=== PATIENT | male | born 1975 | race Caucasian/White ===

== ENCOUNTER 2018-04-27 06:38 | Inpatient (IN) | payer MEDICARE, OTHER ==
[~2018-04-27 06:38] MED LIST: ROPIVACAINE HCL/PF 100 MG, EPINEPHrine 0.2 MG, KETOROLAC TROMETHAMINE 30 MG in NORMAL S... IJ PRN; TRANEXAMIC ACID 1,000 MG in NORMAL SALINE 100 ML IV PRN; ceFAZolin SODIUM 1 GM VIAL IV PRN
--- NOTE | 2018-04-27 07:27 | ANES ---
Anesthesia Pre Procedure Eval Vitals/Labs: Last Vital Signs Temp 36.9 C 04/27/18 06:50 Pulse 95 04/27/18 06:50 Resp 18 04/27/18 06:50 BP 132/78 04/27/18 06:50 Pulse Ox 95 04/27/18 06:50 HOME MEDICATIONS buspirone 15 mg tablet 15 mg PO TID 03/04/18 [Last Taken Unknown] cholecalciferol (vitamin D3) 2,000 unit tablet 2,000 unit PO DAILY 03/04/18 [Last Taken Unknown] famciclovir 500 mg tablet 500 mg PO BID 03/04/18 [Last Taken Unknown] ibuprofen 800 mg tablet 800 mg PO TID 03/04/18 [Last Taken Unknown] venlafaxine ER 150 mg capsule,extended release 24 hr 150 mg PO DAILY 03/04/18 [Last Taken Unknown] pregabalin 200 mg capsule 200 mg PO TID #270 cap 03/06/18 [Last Taken Unknown] triamcinolone acetonide 0.1 % topical cream 1 applic TP BID #454 g 03/06/18 [Last Taken Unknown] tramadol 50 mg tablet 50 mg PO QID #28 tab 03/13/18 [Last Taken Unknown] CPAP See Rx Instructions .ROUTE .COMPLEX #1 04/22/18 [Last Taken Unknown] Allergies/Adverse Reactions: Allergies Allergy/AdvReac Type Severity Reaction Status Date / Time morphine Allergy Severe decrease Verified 04/27/18 07:01 in respirations,stopped breathing - Planned Procedure Planned Procedure: Right Arthroplasty Total Knee Medication List Reviewed:: Yes Allergies Verified: Yes Medical History (Last Reviewed 04/27/18 @ 07:19 by Richard Mandel CRNA) Degenerative joint disease of knee (Chronic) Current every day smoker (Chronic) Neurogenic bladder (Chronic) Right knee DJD (Chronic) Left knee DJD (Chronic) Panic attack (Acute) Onset Date: Unknown SHADY (obstructive sleep apnea) (Chronic) Onset Date: Unknown Opioid dependence (Chronic) Onset Date: Unknown Depression (Chronic) Onset Date: Unknown Anxiety (Chronic) Onset Date: Unknown ARDS (adult respiratory distress syndrome) Onset Date: Unknown Bilateral knee pain Onset Date: Unknown Constipation Onset Date: Unknown Diaphoresis Onset Date: Unknown Herpes Onset Date: Unknown MRSA (methicillin resistant staph aureus) culture positive Onset Date: Unknown Post herpetic neuralgia Onset Date: Unknown Surgical History (Last Reviewed 04/27/18 @ 07:19 by Richard Mandel CRNA) Failed spinal cord stimulator Onset Date: Unknown H/O arthroscopic knee surgery Onset Date: ~2001 Family History (Last Reviewed 04/27/18 @ 07:19 by Richard Mandel CRNA) Mother Cancer Grandfather Cancer - Family Anesthesia History Family History:: no untoward family reactions to anesthesia, no familial bleeding tendencies, no family history of clotting disorders, no family history of premature - Respiratory Smoking Status: Current every day smoker Discussed smoking cessation including day of surgery: Yes Sleep Apnea currently treated: No Sleep Apnea by current assessment: No Discussed Risks/Treatment of SHADY: No - Cardiovascular Tolerates Activity: Fair Heart Sounds: S1 & S2, Regular - Anesthesia Assessment and Plan ASA Class: PS, III Anesthesia Type Plan: General ET - Patient chooses GA, Block - Right adductor canal block for postop analgesia
[2018-04-27] MEDS: RINGER'S SOLUTION,LACTATED 1,000 ML IV PRN ×3 (07:30→11:04)
[2018-04-27] MEDS ORDERED: HYDROmorphone HCL 1 MG/ML DISP.SYRIN IV PRN (10:26)
[2018-04-27] MEDS ORDERED: ZOLPIDEM TARTRATE 5 MG TABLET PO PRN (10:26)
[2018-04-27] MEDS ORDERED: ACETAMINOPHEN 500 MG TABLET PO PRN (10:26)
[2018-04-27] MEDS ORDERED: MAG HYDROX/ALUMINUM HYD/SIMETH 30 ML UDC PO PRN (10:26)
[2018-04-27] MEDS ORDERED: ONDANSETRON HCL/PF 2 MG/ML VIAL IV PRN (10:26)
[2018-04-27] MEDS ORDERED: diphenhydrAMINE HCL 50 MG/ML VIAL IV PRN (10:26)
[2018-04-27] MEDS ORDERED: DEXTROSE 5%-LACTATED RINGERS 1,000 ML IV PRN (10:26)
[2018-04-27] MEDS ORDERED: MAGNESIUM HYDROXIDE 30 ML UDC PO PRN (10:26)
--- NOTE | 2018-04-27 10:26 | OR ---
Operative Report - Dictated Report Narrative: Date: 04/27/2018 Preoperative diagnosis: Right Knee degenerative joint disease. Postoperative diagnosis: Right Knee degenerative joint disease. Procedure: Right Total knee arthroplasty. Surgeon: Obey Marte M.D. Audiology Assistant: Evens Landrum PA-C Anesthesia: Spinal with regional block and local periarticular joint injection. Complications: None Specimens: Bone for disposal. Estimated blood loss: Minimal. Tourniquet time: 120 Minutes at 350 millimeters of mercury. Retained implants: Depuy Attune size 6 right lugged cemented posterior stabilized femoral component. Size 7 fixed-bearing cemented tibial platform. 6 by 5 millimeter posterior stabilized cross-linked tibial insert. 41 millimeter medialized patella button. Indications: Mr. Germain is a 43-year-old gentleman who has had long-standing right knee pain and arthrosis. This patient was followed in my clinic for period of time with significant complaints of right knee pain consistent with arthritic changes. He had failed conservative measures including, but not limited to, activity modification, passage of time, medications, and other conservative measures. Patient wished to proceed with surgical treatment. The risks, benefits, and alternatives were discussed in clinic. The risks of , blood clots, bleeding, infection, nerve/tendon blood vessel/ injury, malposition of components, intraoperative fracture, postoperative limited range of motion, persistent pain, failure of components, and need for additional procedures. Patient wished to proceed consent was obtained after answering all questions. Procedure: After marking the correct extremity on the floor, the patient was jade en to the operating room. A timeout was performed. IV antibiotics consisting of Ancef were administered prior to the procedure. A regional followed by spinal anesthetic was induced by anesthesia, per my request, on the operative table with all bony prominences well-padded. Cassidy catheter was placed, and a bump was placed under the operative side buttock. SCDs and TONYN hose were utilized on the nonoperative leg. A well-padded tourniquet was applied to the operative thigh. The operative leg was then pre-scrubbed with alcohol prepped, and draped in a standard sterile fashion. After exsanguinating the extremity with an Esmarch bandage, the tourniquet was inflated. After marking out the anterior knee for standard incision centered over the patella, the skin was incised and dissected down to the joint retinaculum. The joint retinaculum was marked out as well as the horizontal axis of the patella, and a standard medial parapatellar arthrotomy was then made. The most proximal aspect of the quadriceps tendon and the patella tendon insertion were protected from release. A partial synovectomy was performed as well as a resection of the infrapatellar fat pad. The distal femoral fat pad proximal to the trochlea was also resected using cautery. The soft tissues were elevated off the medial aspect of the proximal tibia using a Frias elevator ensuring that we did not transect the medial collateral ligament. Upon initial evaluation range of motion was approximately 10 degrees to 130 degrees of flexion. There were signs of advanced arthrosis in the lateral and patellofemoral joint spaces. There were large marginal osteophytes which were removed with a rongeur. The knee was hyperflexed and the patella was tucked laterally. Protecting the surrounding soft tissues with Homans, an entry drill was placed down the femoral canal using Whitesides line for guidance into the entry point. The intramedullary femoral alignment hetal was utilized in order to cut the distal femur in 5 degrees of valgus resecting 11 millimeters of bone. Next the distal femur was sized to a size 6. A posterior referencing guide was utilized to place the distal femoral cutting block in 3 degrees of external rotation. This was pinned into place. The rotation was confirmed both visually and based on anatomic landmarks. The 4 in 1 cutting jig of the appropriate size was utilized in order to make all bony cuts. The angle wing was used to ensure no notching. Retractors were utilized in order to protect surrounding soft tissues. This cut did not result in any excessive notching. We then cut the box centered over the distal femur. This allowed for resection of the anterior and posterior cruciate ligaments. I then turned my attention to the preparation of the tibia. Using an extra medullary tibial alignment hetal, 4 millimeters of bone was resected off the medial articular surface. This was made perpendicular to the mechanical axis of the joint with the alignment hetal centered over the ankle mortise. The alignment hetal was checked and was noted to be parallel to the mechanical axis, centered over the medial one third of the tibial tubercle, paralleling the anterior surface of the tibia. We then turned our attention to the remaining meniscus and soft tissues. These were removed while protecting the surrounding ligaments and soft tissues. The marginal osteophytes off the anterior, posterior, medial, lateral aspects of the femur and tibia were removed. The tibia was sized out to a size 7. Next the tibia was drilled and punched in an externally rotated position. Next the trial femur and a series of tibial inserts were utilized in order to allow for full extension and maximal flexion. It was found that a 5 millimeter insert gave the best range of motion and stability at multiple flexion points as well as at full extension there was less than 2 mm of gapping both medially and laterally. There is minimal anterior translation with the knee at 90 degrees of flexion and no signs of being able to dislocate the knee. The patella was then prepared. The initial thickness was 26 millimeters. This was reamed down to 15 millimeters parallel to the anterior surface of the patella. It was sized out to a size 41 medialized patella button. This was then drilled and trialed. Without any medial restraint the patella tracked appropriately and did not sublux or dislocate. At this point, it was felt these were the appropriate sized implants, and all trials were removed. The standard periarticular joint injection consisting of ropivacaine, Toradol, and epinephrine were injected into the periarticular joint tissues. The bony surfaces were thoroughly irrigated with a pulsatile-suction saline irrigation device. A bone plug from the prior resected anterior chamfer cut was placed into the drill hole at the distal femur. The bony surfaces were then dried in preparation for placement of the implants. The cement was vacuum mixed per the estimator's instructions. The cement was placed on the dry bony surfaces and posterior aspect of the implants. The implants were impacted into place, removing all extruded cement. At this point anesthesia administered tranexamic acid per protocol intravenously. The knee was placed in extension with axial loading with the trial insert while the cement cured. Once the cement cured, all remaining extruded cement was removed. The knee was placed through a range of motion with the trial insert to ensure appropriate range of motion and stability. Final range of motion was approximately 0 to 130 degrees. The knee was again thoroughly irrigated with pulsatile saline lavage. The final polyethylene insert was then impacted into place ensuring no retained soft tissues. The remaining periarticular joint injection was injected. A medium Hemovac drain was placed exiting superior laterally. The knee was then placed over a triangle and the arthrotomy was closed with interrupted #1 Vicryl after thoroughly irrigating the joint. The deep and subcutaneous tissues were closed with interrupted 0 and 3-0 Vicryl respectively. Skin was closed with a running subcutaneous 3-0 Monocryl and rodney. Xeroform, 4 x 4's, Sof-Rol, and a full leg Sebas wrap were applied. All sponge, needle, blade, and instrument counts were correct prior to closing the wounds. Postoperative condition: The patient was awoken and transferred to the postanesthesia care unit in stable condition. Plan is to be admitted to the inpatient medical/surgical floor postoperatively for 24 hours of IV antibiotics, physical therapy, occupational therapy, and medical comanagement. Patient will be weightbearing as tolerated with range of motion as tolerated. DVT prophylaxis will be with SCDs, TONNY hose, and pharmacological anticoagulation. Anticipated hospital stay is approximately 1-3 days.
[2018-04-27] MEDS ORDERED: CPAP SCH (10:30)
--- NOTE | 2018-04-27 10:44 | ANES ---
Post Anesthesia Discharge - Transfer of Care Transfer of Care handoff given to nurse: Yes - Discharge from PACU Discharge from PACU when meets criteria: Yes - Discharge to ASU Discharge to ASU-no complications/pt stable: Yes
[2018-04-27] MEDS ORDERED: HYDROmorphone HCL 2 MG/ML VIAL IV PRN (10:46)
[2018-04-27] MEDS ORDERED: PROCHLORPERAZINE EDISYLATE 5 MG/ML VIAL IV PRN (10:46)
[2018-04-27] MEDS ORDERED: NALOXONE HCL 0.4 MG/ML VIAL IV PRN (10:46)
--- NOTE | 2018-04-27 12:46 | ANES ---
Post Anesthesia Assessment - Vital Signs Vitals: Last Vital Signs Temp 36.4 C 04/27/18 12:24 Pulse 82 04/27/18 12:24 Resp 18 04/27/18 12:24 BP 95/32 04/27/18 12:24 Pulse Ox 96 04/27/18 12:24 Airway Patency: Normal - Mental Status Level Of Consciousness: Awake - Pain Level Pain Score: 5 - N/V Assessment Nausea/Vomiting Presence: None Dehydration:: No
[2018-04-27] MEDS: KETOROLAC TROMETHAMINE 15 MG/ML VIAL IV SCH ×3 (13:26→23:28)
[2018-04-27] MEDS: busPIRone HCL 5 MG TABLET PO SCH ×2 (13:29→17:03)
[2018-04-27] MEDS: ceFAZolin SODIUM 1 GM in DEXTROSE 5 % IN WATER 100 ML IV SCH ×4 (13:29→19:35)
[2018-04-27] MEDS: PREGABALIN 50 MG CAPSULE PO SCH ×2 (13:52→20:21)
[2018-04-27] MEDS: TRIAMCINOLONE ACETONIDE 15 APPL TUBE TP SCH (20:18)
[2018-04-27] MEDS: FAMCICLOVIR 500 MG PO SCH (20:18)
[2018-04-27] MEDS ORDERED: SENNOSIDES/DOCUSATE SODIUM 1 TAB TABLET PO SCH (21:00)
[2018-04-28] MEDS: ceFAZolin SODIUM 1 GM in DEXTROSE 5 % IN WATER 100 ML IV SCH ×2 (01:25)
[2018-04-28] MEDS: KETOROLAC TROMETHAMINE 15 MG/ML VIAL IV SCH ×2 (05:26→10:32)
[2018-04-28 05:34] LABS: Hematocrit 38.8 % (42.0-52.0); Hemoglobin 13.2 gm/dL (13.5-18.0); Mean Cell Volume 89.4 fl (78-100); Mean Corpuscular Hemoglobin 30.4 pg (27-31); Mean Platelet Volume 9.2 fl (8-11.3); Platelet Count 228 K/mm3 (150-450); Red Blood Count 4.34 M/mm3 (4.7-6.0); Red Cell Distribution Width 13.1 % (11.5-14.0); White Blood Count 8.9 K/mm3 (4.0-10.5)
[2018-04-28 05:38] LABS: Anion Gap 4.6 mmol/L (6.8-13.8); BUN/Creatinine Ratio 17.6 (9.0-21.6); Calcium * 8.3 mg/dL (7.9-10.9); Carbon Dioxide 29.6 mmol/L (24-32.6); Estimated Creat Clear 90.8; Potassium 4.2 mmol/L (3.4-4.6)
[2018-04-28] MEDS: oxyCODONE HCL/ACETAMINOPHEN 1 TAB TABLET PO PRN ×2 (07:05→12:14)
[2018-04-28] MEDS: PREGABALIN 50 MG CAPSULE PO SCH ×2 (07:05→13:26)
--- NOTE | 2018-04-28 07:46 | ANES ---
Anesthesia Procedure Note Procedure Note: ANESTHESIA PROCEDURE NOTE Date of Procedure: 04/27/2018. Time of procedure: 0740. Performed by: Richard Mandel CRNA [employer] Interpreter: None. Preprocedure diagnosis: Right knee degenerative joint disease. Post procedure diagnosis: Same. Procedure: Right ultrasound guided adductor canal block for block postoperative analgesia. Indications: The patient is a 43-year-old male, requesting right ultrasound- guided abductor canal block for postoperative analgesia related to right total knee arthroplasty. Findings: See below. Details of the procedure: The tissue over the intended target site was cleansed with ChloraPrepand draped in a sterile fashion. 2 ml Lidocaine 1 % was infiltrated to the skin and subcutaneous tissue at the intended target site. Under sterile technique and ultrasound guidance a 18-gauge Tuohy needle was inserted through the right sartorius muscle to the saphenous nerve just anterior and medial to the superficial femoral artery and vein. 15 mL's of 0.5% bupivacaine was injected after negative aspiration for blood. Needle tip and spread of local anesthetic surrounding the saphenous nerve was observed throughout the injection with real time ultrasound visualization. The Tuohy needle was then removed intact. No complications were noted. The images were retained in the Hospital medical database. EBL: Minimal. Fluids: N/A. Specimen: N/A. Post procedure condition: The patient tolerated the procedure well. No complications were noted. Thank you for this consultation. Richard Mandel CRNA
[2018-04-28] MEDS: TRIAMCINOLONE ACETONIDE 15 APPL TUBE TP SCH (08:48)
[2018-04-28] MEDS: busPIRone HCL 5 MG TABLET PO SCH ×2 (08:48→13:25)
[2018-04-28] MEDS: FAMCICLOVIR 500 MG PO SCH (08:49)
[2018-04-28] MEDS ORDERED: CHOLECALCIFEROL 1,000 UNIT CAPSULE PO SCH (09:00)
[2018-04-28] MEDS ORDERED: VENLAFAXINE HCL 150 MG CAP.SR.24H PO SCH (09:00)
[2018-04-28] MEDS ORDERED: ENOXAPARIN SODIUM 40 MG/0.4 ML SYRG SC SCH (09:26)
--- NOTE | 2018-04-28 12:24 | DS ---
(1) S/P total knee arthroplasty Problem: Acute (2) Acute blood loss anemia Problem: Acute (3) Right knee DJD Problem: Chronic Qualifiers: (4) Opioid dependence Problem: Chronic Description of Stay: Mr. Germain was admitted to the floor after undergoing right total knee arthroplasty. Tolerated this well. Was admitted to the floor postoperatively for 24 hours of IV antibiotics, pain control, medical comanagement, and occupational and physical therapy. OT and PT were consulted to assist with activities of daily living and ambulation. Was made weightbearing as tolerated with range of motion as tolerated. Pain was initially controlled with IV regimen. This was transitioned to oral once tolerating a by mouth intake. Was resumed on home diet and medications. Had a Cassidy catheter inserted and the operating room which was discontinued on postoperative day 1. A drain was placed intraoperatively into the knee which was discontinued on postoperative day 1. Lovenox SCD and TONNY hose were utilized for DVT prophylaxis. Vital signs remained stable to the hospital course. Serial labs were obtained which showed a final hemoglobin of 13.2 grams. BMP was reviewed and was stable. Physical examination throughout the hospital course showed an extremity that had sensation that was intact to light touch, palpable pulses, a benign wound, motor intact to the toes, ankle, and knee. Knee range of motion was approximately 5 degrees to 70 degrees. Once an oral pain regimen was tolerated and physical therapy goals were met, it was felt that they were stable for discharge to home. Instructions: Continue with weightbearing as tolerated and range of motion as tolerated. Keep surgical incision clean and dry. Keep incision coveed with dry gauze and tape. Change every 2-3 days as needed. Continue with physical therapy. Resume home diet. Report any fever over 101.5 Fahrenheit, uncontrolled pain, increased drainage, foul odor of drainage, new or increased calf pain or shortness of breath, or any other significant complaints. A 325mg dialy aspirin will be started after finishing anticoagulation if not allergic. Continue with TONNY hose on the operative extremity until instructed otherwise. No driving until instructed otherwise. Follow up in approximately 10-14 days. Procedures Performed: see notes below List Procedures: Right total knee arthroplasty Results and Findings: Lab Pending Results 04/28/18 05:24: WBC 8.9, RBC 4.34 L, Hgb 13.2 L, Hct 38.8 L, MCV 89.4, MCH 30.4, MCHC 34.0, RDW 13.1, Plt Count 228, MPV 9.2 04/28/18 05:24: Sodium 132, Plasma Sodium 132, Potassium 4.2, Chloride 102, Carbon Dioxide 29.6, Anion Gap 4.6 L, BUN 21, Creatinine 1.19, Est GFR (Non-Af Amer) 72, BUN/Creatinine Ratio 17.6, Random Glucose 102, Calcium 8.3 Discharge Location: Home Disposition: Home self-care Condition: Good Referrals: Simone Salazar DO [Primary Care Provider] - Additional Patient Instructions (free text): Physical Therapy at [facility] outpatient Rehab on Follow up with Dr Marte Orthopediclelo on Prescriptions (Any new or edited meds): Enoxaparin Sodium [Lovenox] 40 mg SC Q24H #7 disp.syrin oxyCODONE HCL [Oxycontin] 10 mg PO BID #20 tab.sr.12h oxyCODONE HCL/ACETAMINOPHEN [Percocet 5 MG/325 MG] 2 tab PO Q4H PRN #90 tablet PRN Reason: Moderate Pain (Pain Scale 4-6) Sennosides/Docusate Sodium [Senokot-S] 2 tab PO HS #30 tablet Complete Home Medications List: Complete Home Medication List: buspirone 15 mg tablet 15 mg PO TID 03/04/18 cholecalciferol (vitamin D3) 2,000 unit tablet 2,000 unit PO DAILY 03/04/18 famciclovir 500 mg tablet 500 mg PO BID 03/04/18 venlafaxine ER 150 mg capsule,extended release 24 hr 150 mg PO DAILY 03/04/18 pregabalin 200 mg capsule 200 mg PO TID #270 cap 03/06/18 triamcinolone acetonide 0.1 % topical cream 1 applic TP BID #454 g 03/06/18 CPAP See Rx Instructions .ROUTE .COMPLEX #1 04/22/18 Enoxaparin Sodium [Lovenox] 40 mg SC Q24H #7 disp.syrin 04/28/18 Sennosides/Docusate Sodium [Senokot-S] 2 tab PO HS #30 tablet 04/28/18 oxyCODONE HCL [Oxycontin] 10 mg PO BID #20 tab.sr.12h 04/28/18 oxyCODONE HCL/ACETAMINOPHEN [Percocet 5 MG/325 MG] 2 tab PO Q4H PRN #90 tablet 04/28/18 Amb Orders for Discharge: PT Evaluation and Treatment* Facility: [facility], Location: Rehabilitation Services
[2018-04-28 13:49] VITALS: BP 130/89
== END 2018-04-28 14:05 | disposition home or self-care (01) | DRG 470 ==
LOC: MS 06:38 → EDSTATUS 08:00
PROVIDERS: ADMIT Orthopaedic Surgery; ATTEND Orthopaedic Surgery
CPT/HCPCS: 36415; 73560; 80048; 85027; 90686; 94660; 97110; 97116; 97161; 97165

== ENCOUNTER 2020-04-10 15:00 | Inpatient (IN) ==
[2020-04-19] MEDS ORDERED: ceFAZolin SODIUM 1 GM VIAL IV PRN (06:00)
[2020-04-19] MEDS ORDERED: TRANEXAMIC ACID 1,000 MG in NORMAL SALINE 100 ML IV PRN (06:00)
[2020-04-19] MEDS ORDERED: ROPIVACAINE HCL/PF 100 MG, EPINEPHrine 0.2 MG, KETOROLAC TROMETHAMINE 30 MG in NORMAL S... IJ PRN (06:00)
[2020-04-19] MEDS ORDERED: PROPOFOL VIAL IV ONE (06:16)
[2020-04-19] MEDS ORDERED: BUPIVACAINE HCL/EPINEPHRINE 50 ML VIAL ONE (06:16)
[2020-04-19] MEDS ORDERED: MIDAZOLAM HCL/PF 5 MG/ML VIAL ONE (06:16)
[2020-04-19] MEDS: RINGER'S SOLUTION,LACTATED 1,000 ML IV PRN ×2 (06:30→08:40)
[2020-04-19] MEDS ORDERED: fentaNYL CITRATE/PF 50 MCG/ML AMPUL ONE (06:46)
[2020-04-19] MEDS ORDERED: NEOSTIGMINE METHYLSULFATE 1 MG/ML VIAL ONE (06:46)
[2020-04-19] MEDS ORDERED: GLYCOPYRROLATE 0.2 MG/ML VIAL ONE (06:46)
[2020-04-19] MEDS ORDERED: LIDOCAINE HCL 50 ML VIAL ONE (06:46)
[2020-04-19] MEDS ORDERED: ROCURONIUM BROMIDE 10 MG/ML VIAL ONE (06:47)
[2020-04-19] MEDS ORDERED: SUCCINYLCHOLINE CHLORIDE 20 MG/ML VIAL ONE (06:47)
--- NOTE | 2020-04-19 06:55 | ANES ---
Anesthesia Pre Procedure Eval Vitals/Labs: Last Vital Signs Temp 36 C 04/19/20 06:10 Pulse 86 04/19/20 06:10 Resp 18 04/19/20 06:10 BP 125/80 04/19/20 06:10 Pulse Ox 96 04/19/20 06:10 HOME MEDICATIONS CPAP See Rx Instructions .ROUTE .COMPLEX #1 04/22/18 [Last Taken Unknown] cholecalciferol (vitamin D3) 1,250 mcg (50,000 unit) tablet 25,000 unit PO DAILY #14 tab 05/06/19 [Last Taken Unknown] omeprazole 40 mg capsule,delayed release 40 mg PO DAILY #90 cap 05/06/19 [Last Taken Unknown] cetirizine 10 mg tablet 10 mg PO DAILY PRN #30 tab 06/01/19 [Last Taken Unknown] nystatin 100,000 unit/gram topical powder 1 applic TP BID #60 g 08/06/19 [Last Taken Unknown] tramadol 50 mg tablet 100 mg PO QID #240 tab 03/20/20 [Last Taken Unknown] famciclovir 500 mg tablet 500 mg PO BID #180 tab 04/11/20 [Last Taken Unknown] pregabalin 200 mg capsule 200 mg PO TID #270 cap 04/11/20 [Last Taken Unknown] triamcinolone acetonide 0.1 % topical cream 1 applic TP BID #454 g 04/11/20 [Last Taken Unknown] FLUoxetine HCL [Prozac] 20 mg PO DAILY 04/19/20 [Last Taken Unknown] Ibuprofen 800 mg PO DAILY 04/19/20 [Last Taken Unknown] Tamsulosin HCl [Flomax] 0.4 mg PO DAILY 04/19/20 [Last Taken Unknown] Allergies/Adverse Reactions: Allergies Allergy/AdvReac Type Severity Reaction Status Date / Time morphine Allergy Severe decrease Verified 04/19/20 06:17 in respirations,stopped breathing - Planned Procedure Planned Procedure: Arthroplasty LT Total Knee Medication List Reviewed:: Yes Allergies Verified: Yes Medical History (Last Reviewed 04/19/20 @ 06:36 by Gigi Avendaño CRNA) Major depressive disorder (Chronic) The depression seems to be improved a great deal. He actually went out to eat for the first time in a year with his mother. He went to visit his father. He feels his mood is been elevated a great deal and he is not nearly as sad. He is starting to sleep better. His appetite is improved. He is being much less of a hermit. Is very encouraging for only 2 weeks into the therapy but overall he is definitely improved. His syntax and eye contact are much better. Urinary symptom or sign (Chronic) The urinary symptoms have improved since last visit. His bladder scan revealed residual urine of 0 cc. So he is emptying the bladder much better now. Neurogenic bladder (Chronic) Dmitriy is a and had an injury to his spine requiring surgery. 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 He also had a myelogram and LESI injections. He has developed a problem with incontinence. He states he can go to the bathroom and has to sit down to urinate and once he feels like he is empty then he goes back to his room and then when he sits down and relaxes he has some urinary incontinence again. This suggests a trigone muscle dysfunction and is probably neurogenic. He took bethanechol for a lot of years and then had the nerve stimulator put into his spine and the bethanechol was discontinued. He is not having any frequency or urgency or dysuria. It sounds like he might be a good candidate for a bladder stimulator. He is going to think about that and let me know if he wishes to be referred to a urologist. Left knee DJD (Chronic) Panic attack (Acute) Onset Date: Unknown SHADY (obstructive sleep apnea) (Chronic) Onset Date: Unknown Opioid dependence (Chronic) Onset Date: Unknown Depression (Chronic) Onset Date: Unknown Dmitriy is been disabled because of his back injury, chronic pain syndrome, and bladder incontinence. He has become very depressed and rarely comes out of his room. He also did genome testing for medications and found that sertraline, buspirone and others were not medicines he would do well with. He is not sure about fluoxetine or other SSRIs or SNRIs and he is going to get that to me for me to review. In the meantime I will start him on Prozac. Anxiety (Chronic) Onset Date: Unknown Current every day smoker Degenerative joint disease of knee ARDS (adult respiratory distress syndrome) Onset Date: Unknown Bilateral knee pain Onset Date: Unknown Constipation Onset Date: Unknown Diaphoresis Onset Date: Unknown Herpes Onset Date: Unknown MRSA (methicillin resistant staph aureus) culture positive Onset Date: Unknown Post herpetic neuralgia Onset Date: Unknown Surgical History (Last Reviewed 04/19/20 @ 06:36 by Gigi Avendaño CRNA) Spinal cord stimulator status patient had trial and currently Status post total right knee replacement Onset Date: ~04/27/18 Dr. Marte H/O arthroscopic knee surgery Onset Date: ~2001 right Family History (Last Reviewed 04/19/20 @ 06:36 by Gigi Avendaño CRNA) Mother Cancer uterine CVA (cerebral vascular accident) Grandfather , maternal Cancer liver and lung cancer Father Alive and well - Family Anesthesia History Family History:: no untoward family reactions to anesthesia, no familial bleeding tendencies, no family history of clotting disorders, no family history of premature - Airway/Neck/Teeth Teeth Condition: missing - several Neck Exam: full range of motion Mallampatti Score: 3 Thyromental (T-M) distance: > 6 cm Mandibulo Hyoid distance: > 3 cm - Respiratory Respiratory History: other - Hx aspiration ARDS Respiratory Physical: decreased breath sounds, rhonchi Smoking Status: Current every day smoker - 1ppd Discussed smoking cessation including day of surgery: Yes Sleep Apnea currently treated: Yes Sleep Apnea by current assessment: Yes - Cardiovascular Tolerate Activity: Poor Heart Sounds: S1 & S2, Regular - Gastrointestinal NPO since: 2400 - Anesthesia Assessment and Plan ASA Class: PS, III Anesthesia Type Plan: General ET
[2020-04-19] MEDS ORDERED: ONDANSETRON HCL/PF 2 MG/ML VIAL ONE (08:25)
[2020-04-19] MEDS ORDERED: KETOROLAC TROMETHAMINE 30 MG/ML VIAL ONE (08:25)
[2020-04-19] MEDS ORDERED: ONDANSETRON HCL/PF 2 MG/ML VIAL IV PRN (09:35)
[2020-04-19] MEDS ORDERED: ACETAMINOPHEN 500 MG TABLET PO PRN (09:35)
[2020-04-19] MEDS ORDERED: MAGNESIUM HYDROXIDE 30 ML UDC PO PRN (09:35)
[2020-04-19] MEDS ORDERED: ZOLPIDEM TARTRATE 5 MG TABLET PO PRN (09:35)
[2020-04-19] MEDS ORDERED: MAG HYDROX/ALUMINUM HYD/SIMETH 30 ML UDC PO PRN (09:35)
[2020-04-19] MEDS ORDERED: diphenhydrAMINE HCL 50 MG/ML VIAL IV PRN (09:35)
[2020-04-19] MEDS ORDERED: LORATADINE 10 MG TABLET PO PRN (09:37)
--- NOTE | 2020-04-19 09:51 | OR ---
Operative Report - Dictated Report Narrative: Date: 04/19/2020 Preoperative diagnosis: Left knee degenerative joint disease. Postoperative diagnosis: Left knee degenerative joint disease. Procedure: Left total knee arthroplasty. Surgeon: Obey Marte M.D. Spot Machine Operator: Evens Landrum PA-C (provided and essential set of skilled, educated hands that assisted with transfer, positioning, prepping, draping, manipulation, retraction, placement of jigs, injection, insertion of implants, irrigation, closure wounds, and dressings all of which could not be performed by the available surgical crew) Anesthesia: Spinal with regional block and local periarticular joint injection. Complications: None Specimens: Bone. Estimated blood loss: Minimal. Tourniquet time: 115 Minutes at 325 millimeters of mercury. Retained implants: Depuy Attune size 7 left lugged cemented posterior stabilized femoral component. Size 7 fixed-bearing cemented tibial platform. 7 by 6 millimeter posterior stabilized cross-linked tibial insert. 41 millimeter medialized patella button. Indications: Mr. Germain is a 45-year-old gentleman who has had longstanding left knee pain and arthrosis. This patient was followed in my clinic for period of time with significant complaints of left knee pain consistent with arthritic changes. He had failed conservative measures including, but not limited to, activity modification, passage of time, medications, and other conservative measures. Patient wished to proceed with surgical treatment. The risks, benefits, and alternatives were discussed in clinic. The risks of , blood clots, bleeding, infection, nerve/tendon blood vessel/ injury, malposition of components, intraoperative fracture, postoperative limited range of motion, persistent pain, failure of components, and need for additional procedures. Patient wished to proceed consent was obtained after answering all questions. Procedure: After marking the correct extremity on the floor, the patient was taken to the operating room. A timeout was performed. IV antibiotics consisting of Ancef were administered prior to the procedure. A regional followed by spinal anesthetic was induced by anesthesia, per my request, on the operative table with all bony prominences well-padded. Cassidy catheter was placed, and a bump was placed under the operative side buttock. SCDs and TONNY hose were utilized on the nonoperative leg. A well-padded tourniquet was applied to the operative thigh. The operative leg was then pre-scrubbed with alcohol, prepped, and draped in a standard sterile fashion. After exsanguinating the extremity with an Esmarch bandage, the tourniquet was inflated. After marking out the anterior knee for standard incision centered over the patella, the skin was incised and dissected down to the joint retinaculum. The joint retinaculum was marked out as well as the horizontal axis of the patella, and a standard medial parapatellar arthrotomy was then made. The most proximal aspect of the quadriceps tendon and the patella tendon insertion were protected from release. A partial synovectomy was performed as well as a resection of the infrapatellar fat pad. The distal femoral fat pad proximal to the trochlea was also resected using cautery. The soft tissues were elevated off the medial aspe ct of the proximal tibia using a Frias elevator ensuring that we did not transect the medial collateral ligament. Upon initial evaluation range of motion was approximately 5 degrees to 130 degrees of flexion. There were signs of advanced arthrosis in the medial and patellofemoral joint spaces. There were large marginal osteophytes which were removed with a rongeur. The knee was hyperflexed and the patella was tucked laterally. Protecting the surrounding soft tissues with Homans, an entry drill was placed down the femoral canal using Whitesides line for guidance into the entry point. The i ntramedullary femoral alignment hetal was utilized in order to cut the distal femur in 5 degrees of valgus resecting 10 millimeters of bone. Next the distal femur was sized to a size 7. A posterior referencing guide was utilized to place the distal femoral cutting block in 3 degrees of external rotation. This was pinned into place. The rotation was confirmed both visually and based on anatomic landmarks. The 4 in 1 cutting jig of the appropriate size was utilized in order to make all bony cuts. The marly wing was used to ensure no notching. Retractors were utilized in order to protect surrounding soft tissues. This cut did not result in any excessive notching. We then cut the box centered over the distal femur. This allowed for resection of the anterior and posterior cruciate ligaments. I then turned my attention to the preparation of the tibia. Using an extra medullary tibial alignment hetal, 6 millimeters of bone was resected off the medial articular surface. This was made perpendicular to the mechanical axis of the joint with the alignment hetal centered over the ankle mortise. The alignment hetal was checked and was noted to be parallel to the mechanical axis, centered over the medial one third of the tibial tubercle, paralleling the anterior surface of the tibia. We then turned our attention to the remaining meniscus and soft tissues. These were removed while protecting the surrounding ligaments and soft tissues. The marginal osteophytes off the anterior, posterior, medial, lateral aspects of the femur and tibia were removed. The tibia was sized out to a size 7. Next the tibia was drilled and punched in an externally rotated position. Next the trial femur and a series of tibial inserts were utilized in order to allow for full extension and maximal flexion. It was found that a 6 millimeter insert gave the best range of motion and stability at multiple flexion points as well as at full extension there was less than 2 mm of gapping both medially and laterally. There is minimal anterior translation with the knee at 90 degrees of flexion and no signs of being able to dislocate the knee. The patella was then prepared. The initial thickness was 27 millimeters. This was reamed down to 17 millimeters parallel to the anterior surface of the patella. It was sized out to a size 41 medialized patella button. This was then drilled and trialed. Without any medial restraint the patella tracked appropriately and did not sublux or dislocate. At this point, it was felt these were the appropriate sized implants, and all trials were removed. The standard periarticular joint injection consisting of ropivacaine, Toradol, and epinephrine were injected into the periarticular joint tissues. The bony surfaces were thoroughly irrigated with a pulsatile-suction saline irrigation device. A bone plug from the prior resected anterior chamfer cut was placed into the drill hole at the distal femur. The bony surfaces were then dried in preparation for placement of the implants. The cement was vacuum mixed per the charging plug placer's instructions. The cement was placed on the dry bony surfaces and posterior aspect of the implants. The implants were impacted into place, removing all extruded cement. At this point anesthesia administered tranexamic acid per protocol intravenously. The knee was placed in extension with axial loading with the trial insert while the cement cured. Once the cement cured, all remaining extruded cement was removed. The knee was placed through a range of motion with the trial insert to ensure appropriate range of motion and stability. Final range of motion was approximately 0 to 130 degrees. The knee was again thoroughly irrigated with pulsatile saline lavage. The final polyethylene insert was then impacted into place ensuring no retained soft tissues. The remaining periarticular joint injection was injected. A medium Hemovac drain was placed exiting superior laterally. The knee was then placed over a triangle and the arthrotomy was closed with interrupted #1 Vicryl after thoroughly irrigating the joint. The deep and subcutaneous tissues were closed with interrupted 0 and 3-0 Vicryl respectively. Skin was closed with a running subcutaneous 3-0 Monocryl and Prineo Dermabond dressing. 4 x 4's, Sof-Rol, and a full leg Sebas wrap were applied. All sponge, needle, blade, and instrument counts were correct prior to closing the wounds. Postoperative condition: The patient was awoken and transferred to the postanesthesia care unit in stable condition. Plan is to be admitted to the inpatient medical/surgical floor postoperatively for 24 hours of IV antibiotics, physical therapy, occupational therapy, and medical comanagement. Patient will be weightbearing as tolerated with range of motion as tolerated. DVT prophylaxis will be with SCDs, TONNY hose, and pharmacological anticoagulation. Anticipated hospital stay is approximately 1-3 days.
--- NOTE | 2020-04-19 10:26 | ANES ---
Post Anesthesia Discharge - Transfer of Care Transfer of Care handoff given to nurse: Yes - Discharge from PACU Discharge from PACU when meets criteria: Yes - Awake in PACU.
--- NOTE | 2020-04-19 10:26 | ANES ---
Anesthesia Procedure Note Procedure Note: ANESTHESIA PROCEDURE NOTE Date of Procedure: 04/19/2020 Time of procedure: 7:25 AM. Performed by: HAWA Estrella CRNA, MSN Tool Die Maker: Katherin Jules RN. Preprocedure diagnosis: Post knee surgery pain. Post procedure diagnosis: Same. Procedure: Left adductor Canal Block. Indications: Post left post total knee arthroplasty pain relief. Findings: See below. Details of the procedure: The patient was brought to OR #4 and placed in supine position. The patient's left femoral area to the knee was prepped with chlorhexidine and using ultrasound guidance (OB Sonosite) the left femoral artery and nerve was identified and then followed to the level of the adductor canal. Lidocaine 1% was infiltrated to the skin of the intended injection site. Under ultrasound guidance the saphenous nerve was approached with visualization of a 2 inch shielded block needle. Once saphenous nerve was identified with proximity to the needle tip, the saphenous nerve was surrounded with 20 mL bupivacaine 0.5% with 1-200,000 epinephrine. Please see radiology/ultrasound report for details and retained images of the procedure. EBL: 0 Fluids: N/A. Specimen: N/A. Post procedure condition: The patient tolerated the procedure well. No complications were noted. Thank you for this consultation. Gigi Avendaño CRNA, ARNP, MSN
--- NOTE | 2020-04-19 11:04 | ANES ---
Post Anesthesia Assessment - Vital Signs Vitals: Last Vital Signs Temp 36.4 C 04/19/20 10:54 Pulse 78 04/19/20 10:54 Resp 20 04/19/20 10:54 BP 150/89 H 04/19/20 10:54 Pulse Ox 97 04/19/20 10:54 Airway Patency: Normal - Mental Status Level Of Consciousness: Awake, Alert, Appropriate - Pain Level Pain Score: 8 - N/V Assessment Nausea/Vomiting Presence: None Dehydration:: No
[2020-04-19] MEDS: KETOROLAC TROMETHAMINE 15 MG/ML VIAL IV SCH ×3 (11:29→21:01)
[2020-04-19] MEDS: DEXTROSE 5%-LACTATED RINGERS 1,000 ML IV PRN ×2 (11:30→20:14)
[2020-04-19] MEDS: CEFAZOLIN SODIUM/DEXTROSE,ISO 1 GM/50 ML BAG IV SCH ×3 (11:30→21:01)
[2020-04-19] MEDS: PANTOPRAZOLE SODIUM 40 MG TABLET.EC PO SCH (11:33)
[2020-04-19] MEDS ORDERED: SEVOFLURANE 250 ML BTL IH ONE (11:47)
[2020-04-19] MEDS: PREGABALIN 50 MG CAPSULE PO SCH ×2 (12:56→16:06)
[2020-04-19] MEDS: oxyCODONE HCL/ACETAMINOPHEN 1 TAB TABLET PO PRN ×3 (13:43→22:50)
[2020-04-19] MEDS ORDERED: TAMSULOSIN HCL 0.4 MG CAP.SR.24H PO SCH (18:00)
[2020-04-19] MEDS: NYSTATIN 15 APPL BTL TP SCH ×2 (20:21→20:23)
[2020-04-19] MEDS ORDERED: SENNOSIDES/DOCUSATE SODIUM 1 TAB TABLET PO SCH (21:00)
[2020-04-19] MEDS: HYDROmorphone HCL 1 MG/ML DISP.SYRIN IV PRN (23:42)
[2020-04-20] MEDS: KETOROLAC TROMETHAMINE 15 MG/ML VIAL IV SCH ×2 (04:26→09:44)
[2020-04-20] MEDS: PANTOPRAZOLE SODIUM 40 MG TABLET.EC PO SCH (06:28)
[2020-04-20] MEDS: oxyCODONE HCL/ACETAMINOPHEN 1 TAB TABLET PO PRN ×2 (06:28→13:40)
[2020-04-20 06:37] LABS: Hemoglobin 13.9 gm/dL (13.5-18.0); Mean Cell Volume 89.1 fl (78-100); Mean Corpuscular Hemoglobin 30.2 pg (27-31); Mean Corpuscular Hgb Conc 33.9 g/dl (32-36); Mean Platelet Volume 9.4 fl (8-11.3); Platelet Count 259 K/mm3 (150-450); Red Cell Distribution Width 13.4 % (11.5-14.0); White Blood Count 7.9 K/mm3 (4.0-10.5)
[2020-04-20 06:41] LABS: Anion Gap 9.9 mmol/L (6.8-13.8); Calcium * 8.6 mg/dL (7.9-10.9); Carbon Dioxide 29.8 mmol/L (24-32.6); Estimated Creat Clear 93.2; Potassium 3.7 mmol/L (3.4-4.6)
[2020-04-20 06:49] LABS: BUN/Creatinine Ratio 10.4 (9.0-21.6)
[2020-04-20] MEDS: HYDROmorphone HCL 1 MG/ML DISP.SYRIN IV PRN (07:24)
[2020-04-20] MEDS ORDERED: ENOXAPARIN SODIUM 40 MG/0.4 ML SYRG SC SCH (08:35)
[2020-04-20] MEDS ORDERED: FLUoxetine HCL 20 MG CAPSULE PO SCH (09:00)
[2020-04-20] MEDS ORDERED: CHOLECALCIFEROL 5,000 UNIT TABLET PO SCH (09:00)
[2020-04-20] MEDS: NYSTATIN 15 APPL BTL TP SCH (09:44)
[2020-04-20] MEDS: PREGABALIN 50 MG CAPSULE PO SCH ×2 (09:45→12:54)
--- NOTE | 2020-04-20 12:19 | DS ---
(1) Status post left knee replacement Problem: Acute (2) Major depressive disorder Problem: Chronic Qualifiers: (3) Neurogenic bladder Problem: Chronic (4) SHADY (obstructive sleep apnea) Problem: Chronic (5) Opioid dependence Problem: Chronic (6) Depression Problem: Chronic Qualifiers: (7) Anxiety Problem: Chronic Date of Discharge:: 04/20/20 Hospital Course: Mr. Germain was admitted to the floor after undergoing left total knee arthroplasty. Tolerated this well. Was admitted to the floor postoperatively for 24 hours of IV antibiotics, pain control, medical comanagement, and occupational and physical therapy. OT and PT were consulted to assist with activities of daily living and ambulation. Was made weightbearing as tolerated with range of motion as tolerated. Pain was initially controlled with IV regimen. This was transitioned to oral once tolerating a by mouth intake. Was resumed on home diet and medications. Had a Cassidy catheter inserted and the operating room which was discontinued on postoperative day 1. A drain was placed intraoperatively into the knee which was discontinued on postoperative day 1. Lovenox SCD and TONNY hose were utilized for DVT prophylaxis. Vital signs remained stable to the hospital course. Serial labs were obtained which showed a final hemoglobin of 13.9 grams. BMP was reviewed and was stable. Physical examination throughout the hospital course showed an extremity that had sensation that was intact to light touch, palpable pulses, a benign wound, motor intact to the toes, ankle, and knee. Knee range of motion was approximately 5 degrees to 75 degrees. Once an oral pain regimen was tolerated and physical therapy goals were met, it was felt that they were stable for discharge to home. Instructions: Continue with weightbearing as tolerated and range of motion as tolerated. It is OK to shower on the wound if it is not draining. If you note any drainage or for comfort you can cover with dry gauze and tape. Change every 2-3 days as needed. Continue with physical therapy. Resume home diet. Report any fever over 101.5 Fahrenheit, uncontrolled pain, increased drainage, foul odor of drainage, new or increased calf pain or shortness of breath, or any other significant complaints. A 325mg dialy aspirin will be started after finishing anticoagulation if not allergic. Continue with TONNY hose on the operative extremity until instructed otherwise. No driving until instructed otherwise. Follow up in approximately 10-14 days. Procedures Performed: see notes below List Procedures: Left total knee arthroplasty Results and Findings: Lab Pending Results 04/20/20 06:33: WBC 7.9, RBC 4.60 L, Hgb 13.9, Hct 41.0 L, MCV 89.1, MCH 30.2, MCHC 33.9, RDW 13.4, Plt Count 259, MPV 9.4 04/20/20 06:33: Sodium 141, Plasma Sodium 141, Potassium 3.7, Chloride 105, Carbon Dioxide 29.8, Anion Gap 9.9, BUN 12, Creatinine 1.15, Est GFR (Non-Af Amer) 74, BUN/Creatinine Ratio 10.4, Random Glucose 101, Calcium 8.6 Discharge Location: Home Disposition: Home self-care Condition: Good Discharge Activity: Activity as tolerated, Weight bearing - With wheeled walker Discharge Diet: General/regular food Referrals: Simone Salazar DO [Primary Care Provider] - Additional Patient Instructions (free text): Physical Therapy at [facility], [facility] on [address] [place] [address], with a phone number of [phone]. His Physical Therapy appointment is on FridayApril 21 at 11:00am. Please fax demographic sheet and PT order to [phone]. Follow up Orthopedic Office appointment at [facility] on FridayMay 09 at 9:45am. Prescriptions (Any new or edited meds): Enoxaparin Sodium [Lovenox] 40 mg SC Q24H #7 disp.syrin Transmission Status: Pending to [place], [place] oxyCODONE HCL [Oxycontin] 10 mg PO BID #20 tab.sr.12h Transmission Status: Received by [place], [place] oxyCODONE HCL/ACETAMINOPHEN [Percocet 5 MG/325 MG] 2 tab PO Q4H PRN #56 tab PRN Reason: Moderate Pain (Pain Scale 4-6) Transmission Status: Received by [place], [place] Sennosides/Docusate Sodium [Senokot-S] 2 tab PO HS #30 tab Transmission Status: Pending to [place], [place] Complete Home Medications List: Complete Home Medication List: CPAP See Rx Instructions .ROUTE .COMPLEX #1 04/22/18 omeprazole 40 mg capsule,delayed release 40 mg PO DAILY #90 cap 05/06/19 cetirizine 10 mg tablet 10 mg PO DAILY PRN #30 tab 06/01/19 nystatin 100,000 unit/gram topical powder 1 applic TP BID #60 g 08/06/19 tramadol 50 mg tablet 100 mg PO QID #240 tab 03/20/20 famciclovir 500 mg tablet 500 mg PO BID #180 tab 04/11/20 pregabalin 200 mg capsule 200 mg PO TID #270 cap 04/11/20 triamcinolone acetonide 0.1 % topical cream 1 applic TP BID #454 g 04/11/20 FLUoxetine HCL [Prozac] 20 mg PO DAILY 04/19/20 Ibuprofen 800 mg PO DAILY 04/19/20 Tamsulosin HCl [Flomax] 0.4 mg PO DAILY 04/19/20 Cholecalciferol [Vitamin D] 2,000 unit PO DAILY 04/20/20 Enoxaparin Sodium [Lovenox] 40 mg SC Q24H #7 disp.syrin 04/20/20 Sennosides/Docusate Sodium [Senokot-S] 2 tab PO HS #30 tab 04/20/20 oxyCODONE HCL [Oxycontin] 10 mg PO BID #20 tab.sr.12h 04/20/20 oxyCODONE HCL/ACETAMINOPHEN [Percocet 5 MG/325 MG] 2 tab PO Q4H PRN #56 tab 04/20/20 Amb Orders for Discharge: PT Evaluation and Treatment* Facility: [facility], Location: Rehabilitation Services Forms: Patient Portal Registration
[2020-04-20] MEDS ORDERED: FLU VACC QS2020-21(6MOS UP)/PF 60 MCG/0.5 ML SYRINGE IM ONE (13:36)
[2020-04-20 14:17] VITALS: BP 145/86
[2020-04-21] MEDS ORDERED: CHOLECALCIFEROL 1,000 UNIT CAPSULE PO SCH (09:00)
== END 2020-04-20 14:26 | disposition home or self-care (01) | DRG 470 ==
LOC: MS 04-19 06:07 → EDSTATUS 04-19 07:30
PROVIDERS: ADMIT Orthopaedic Surgery; ATTEND Orthopaedic Surgery
DX: T40.2X5A Adverse effect of other opioids, initial encounter; N31.9 Neuromuscular dysfunction of bladder, unspecified; M17.32 Unilateral post-traumatic osteoarthritis, left knee; G47.33 Obstructive sleep apnea (adult) (pediatric); Z23 Encounter for immunization; F32.9 Major depressive disorder, single episode, unspecified; F11.20 Opioid dependence, uncomplicated